=== PATIENT | female | born 2005 | race Caucasian/White ===

== ENCOUNTER 2024-01-03 23:19 | Emergency (ER) | payer SELFPAY ==
[~2024-01-03] VITALS: Ht 167.6 cm; Wt 61.0 kg
[2024-01-03 23:21] VITALS: O2SAT 99
[2024-01-03] MEDS: LORAZEPAM 2MG/ML INJ IM ONE (23:44)
[2024-01-03 23:51] LABS: BASOPHILS % 0.7 % (0.0-2.0); EOSINOPHILS % 0.8 % (0.0-5.0); HEMATOCRIT. 38.2 % (36.0-48.0); HEMOGLOBIN. 12.5 g/dL (12.0-16.0); LYMPHOCYTES % 27.8 % (20.0-50.0); MEAN CORPUSCULAR HGB CONC 32.7 g/dL (31.0-37.0); MEAN CORPUSCULAR VOLUME 88.7 fL (81.0-99.0); MEAN PLATELET VOLUME 8.2 fl (7.4-10.4); MONOCYTES % 7.1 % (2.0-8.0); NEUTROPHILS % 63.6 % (40.0-76.0); PLATELET 436 x1000/uL (130-400); RED BLOOD CELL COUNT 4.31 mill/uL (4.2-5.4); RED CELL DISTRIBUTION WIDTH 15.6 % (11.6-14.6); WHITE BLOOD COUNT 6.6 x1000/uL (4.5-11.0)
[2024-01-03 23:55] LABS: CHLORIDE 111 mEq/L (98-107); POTASSIUM 3.5 mEq/L (3.5-5.1); SODIUM 144 mEq/L (136-145)
[2024-01-03 23:56] LABS: CARBON DIOXIDE 26 mEq/L (21-32)
[2024-01-03 23:57] LABS: CALCIUM 9.4 mg/dL (8.7-10.4)
[2024-01-04 00:01] LABS: CREATININE 0.6 mg/dL (0.6-1.0); GLUCOSE 89 mg/dL (70-105)
[2024-01-04 00:11] LABS: ETHANOL BLOOD 295 mg/dL (<10); HCG SCREEN NEGATIVE
[2024-01-04] MEDS: HALOPERIDOL LACTATE 5MG/ML VIAL IM ONE (00:13)
[2024-01-04 00:32] LABS: UREA NITROGEN BLOOD < 5 mg/dL (9-23)
[2024-01-04] MEDS: SODIUM CHLORIDE 0.9% 1,000 ML IV ONE (01:15)
[2024-01-04 07:45] VITALS: BP 110/61; PULSE 63; RESP 16; TEMP 97.8
== END 2024-01-04 07:59 | disposition home or self-care (01) ==
LOC: ER 23:19
DX: F10.129 Alcohol abuse with intoxication, unspecified (principal); Y90.8 Blood alcohol level of 240 mg/100 ml or more
CPT/HCPCS: 80048; 80320; 84703; 85025; 36415; 96372 ×2; 99284; 96360; 96361; J2060; J1630; J7030; G0480

== ENCOUNTER 2024-10-09 14:30 | Emergency (ER) | payer MEDICAID ==
[~2024-10-09] VITALS: Ht 172.7 cm; Wt 85.0 kg
[2024-10-09 14:36] VITALS: O2SAT 98
[2024-10-09 15:20] LABS: HEMATOCRIT 31.7 % (36.0-48.0); MEAN CORPUSCULAR HGB CONC 34.9 g/dL (31.0-37.0); MEAN CORPUSCULAR VOLUME 88.9 fL (81.0-99.0); PLATELET 309 x1000/uL (130-400); RED BLOOD CELL COUNT 3.56 mill/uL (4.2-5.4); RED CELL DISTRIBUTION WIDTH 14.7 % (11.6-14.6); WHITE BLOOD COUNT 11.5 x1000/uL (4.5-11.0)
[2024-10-09] MEDS: ACETAMINOPHEN 500MG TABLET PO ONE (15:25)
[2024-10-09] MEDS: LIDOCAINE 5% PATCH TOP SCH (15:25)
[2024-10-09 15:30] LABS: CHLORIDE 109 mEq/L (98-107); POTASSIUM 3.2 mEq/L (3.5-5.1); SODIUM 139 mEq/L (136-145)
[2024-10-09 15:31] LABS: CALCIUM 8.8 mg/dL (8.7-10.4); CARBON DIOXIDE 21 mEq/L (21-32)
[2024-10-09 15:36] LABS: GLUCOSE 126 mg/dL (70-105); UREA NITROGEN BLOOD < 5 mg/dL (9-23)
[2024-10-09 15:37] LABS: INR 0.9; PARTIAL THROMBOPLASTIN TIME 26.7 sec (23.4-31.0); PROTHROMBIN TIME 10.1 sec (9.6-11.0)
[2024-10-09 15:38] LABS: ALANINE AMINOTRANSFERASE 13 IU/L (10-49); ALBUMIN 3.7 g/dL (3.2-4.8); ASPARTATE AMINOTRANSFERASE 18 IU/L (<34); BILIRUBIN TOTAL 0.3 mg/dL (0.1-1.0); PROTEIN TOTAL 6.4 g/dL (6.0-8.3)
[2024-10-09 15:39] LABS: CREATININE 0.4 mg/dL (0.6-1.0)
[2024-10-09 15:41] LABS: HEPATITIS B SURFACE AB 210.1 mIU/mL (<10)
[2024-10-09 16:14] LABS: HEPATITIS B CORE AB IGM NEGATIVE (Negative)
[2024-10-09 16:56] VITALS: BP 134/85; PULSE 91; RESP 24; TEMP 37; O2SAT 100
== END 2024-10-09 17:05 | disposition short-term general hospital (02) ==
LOC: ER 14:30
DX: O26.893 Other specified pregnancy related conditions, third trimester (principal); R10.9 Unspecified abdominal pain; M54.50 Low back pain, unspecified; Z3A.35 35 weeks gestation of pregnancy
CPT/HCPCS: 36415; 76815; 80053; 85027; 86592; 86705; 86706; 99291